=== PATIENT | male | born 1985 | race Caucasian/White ===

== ENCOUNTER → 2021-06-06 | Outpatient (CLI) | payer OTHER ==
--- NOTE | 2021-06-10 18:06 | SLEEPCENT ---
DATE: 06/06/2021 ORDERED BY: Nery Salcido Nocturnal polysomnography was performed for evaluation of sleep physiology in this patient with a history of excessive somnolence and nonrestorative sleep. There was 8 hours and 9 minutes of data reviewed. There was 454 minutes of sleep identified. Sleep latency was normal at 16 minutes. REM latency was normal at 84 minutes. Sleep architecture was good with four progressively lengthening REM cycles. Overall sleep efficiency was 94.7%. The electrocardiogram showed a sinus rhythm throughout with an average heart rate of 48 beats per minute. Rate ranged 40-60. EEG showed some mild coarsening in background. No focal events were identified, and there were normal waveforms for wake and sleep. There were 11 respiratory events identified of 10 seconds in duration or greater for an apnea-hypopnea index within normal range at 1.5. Snoring was noted during the study. Arousals from respiratory events when arousals from snoring were included occurred 2.4 times per hour. There was some minor activity in the limb EMG leads. One train of 30 events was seen. Limb movement arousal index was normal at 4.4. Oxygen saturations remained 90% plus throughout the study. IMPRESSION: Normal nocturnal polysomnography with snoring.
== END ==
LOC: M SLEEP 20:00
PROVIDERS: ATTEND Nurse Practitioner Family
DX: R06.83 Snoring (principal)